=== PATIENT | female | born 1975 | race Caucasian/White ===

== ENCOUNTER 2018-03-03 17:01 | Observation (INO) ==
[~2018-03-03 17:01] MED LIST: HYDROcodone/ACETAMINOPHEN 1 EACH TABLET PO PRN; HYDROmorphone HCL 1 MG/ML DISP.SYRIN IV PRN; HYDROmorphone HCL 2 MG/ML VIAL IV PRN; NALOXONE HCL 0.4 MG/ML VIAL IV PRN; ONDANSETRON HCL/PF 2 MG/ML VIAL IV PRN; PROCHLORPERAZINE EDISYLATE 5 MG/ML VIAL IV PRN; diphenhydrAMINE HCL 50 MG/ML VIAL IV PRN
[2018-03-03] MEDS ORDERED: DIATRIZOATE MEGLUMINE, SODIUM 30 ML BTL PO ONE (17:18)
[2018-03-03] MEDS ORDERED: NORMAL SALINE 1,000 ML IV ONE (17:18)
[2018-03-03] MEDS ORDERED: DIATRIZOATE MEGLUMINE, SODIUM 30 ML BTL ONE (17:21)
--- NOTE | 2018-03-03 17:26 | ERNOTE ---
Abdominal HPI - Narrative Date of Service: 03/03/18 - General Chief Complaint: Abdominal Pain Time Seen by Provider: 03/03/18 17:12 Source: patient Exam Limitations: no limitations - Immun/Allergies/Home Medications Immunizatons: IMMUNIZATION HX Immunizations Up to Date Yes Allergies/Adverse Reactions: Allergies No Known Allergies Allergy (Verified 03/03/18 17:09) Home Medications: HOME MEDICATIONS Citalopram Hydrobromide [Citalopram HBr] 10 mg PO DAILY 03/03/18 [Last Taken Unknown] - History of Present Illness Narrative: patient presents to the ED for evaluation of abdominal pain. This pain began last night. She points to her right lower abdomen. She has never had anything like it before. It initially was coming and going, now constant. Never had it before. Moderate. Worse with palpation. No urineary Sx. Has not seen anyone else for this. No fever, no vomiting or diarrhea. Timing: constant, getting worse Quality: moderate Activities at Onset: none Modifying Factors - (Improves): Present: other - nothing Modifying Factors - (Worsens): Present: other - palpation Associated Symptoms: Absent: headache, diarrhea-gross blood, diarrhea-mucous, vomiting, shortness of breath Prior Abdominal Problems: Present: none Prior Treatment: Absent: recently seen Review of Systems - Review of Systems Constitutional: Absent: fever EYE: Present: see HPI ENT: Absent: sore throat Respiratory: Absent: shortness of breath Cardiology: Absent: chest pain Gastrointestinal/Abdominal: Present: See HPI Genitourinary: Absent: dysuria All Other Systems: All systems neg except as marked Medical History (Last Reviewed 03/03/18 @ 17:21 by Fernando Levine MD) Anxiety Depression Surgical History: Surgical History (Last Reviewed 03/03/18 @ 17:21 by Fernando Levine MD) History of delivery History of tonsillectomy Social History: Preferred Language Wolof Do you have any scientologist or No cultural preference? Smoking Status Never smoker Alcohol Use occasionally Drug Use none Physical Exam - Physical Exam General Appearance: Present: alert, no apparent distress Head Exam: Present: normal inspection, no evidence of injury Eye Exam: Normal inspection: bilateral, PERRL: bilateral Ears, Nose, Throat: Present: normal ENT inspection Neck: Present: normal inspection Respiratory: Present: no respiratory distress, normal breath sounds, no accessory muscle use, lungs clear Cardiovascular/Chest: Present: regular rate, rhythm, normal peripheral pulses Gastrointestinal/Abdominal: Present: normal bowel sounds, nondistended, soft, other - right low abdominal tendenress to palpation Back Exam: Absent: CVA tenderness (R), CVA tenderness (L) Extremity Exam: Present: normal inspection Neurological Exam: Present: alert, no motor/sensory deficits Skin Exam: Present: normal color, warm/dry ED Progress - Results and Orders Patient's Lab Results:: I have reviewed the patient's lab results. - Vital Signs Patient's Vital Signs:: I have reviewed the patient's vital signs. Vital Signs: Vital Signs 03/03/18 17:04 Temperature 36.7 C Pulse Rate 70 Respiratory Rate 16 Blood Pressure 121/72 O2 Sat by Pulse Oximetry 98 - CT/Ultrasound CT/Ultrasound Narrative: I reviewed the official radiology report - Progress/Reassessment Chief Complaint: Abdominal Pain Progress Note-Subjective: 03/03/18 20:04 D/W Patient. D/W Dr Araujo who will come to see the patient. Departure Clinical Impression: Acute appendicitis - Departure Disposition: Still a patient Condition: Stable Referrals: Lizabeth Vieira MD [Primary Care Provider] -
[2018-03-03 17:46] LABS: Hematocrit 38.7 % (37.0-47.0); Hemoglobin 13.1 gm/dL (12.5-16.0); Mean Cell Volume 94.6 fl (78-100); Mean Corpuscular Hgb Conc 33.9 g/dl (32-36); Mean Platelet Volume 9.4 fl (8-12.5); Neutrophil # 12.7 K/mm3 (1.3-6.0); Neutrophil % 76.7 % (42-75.0); Platelet Count 331 K/mm3 (150-450); Red Blood Count 4.09 M/mm3 (4.2-5.4); Red Cell Distribution Width 11.9 % (11.5-14.0); White Blood Count 16.6 K/mm3 (4.0-10.5)
[2018-03-03 18:01] LABS: Urine Appearance Clear (CLEAR); Urine Bacteria None Seen; Urine Bilirubin Negative (NEGATIVE); Urine Blood Negative /ul (NEGATIVE); Urine Color Yellow; Urine Ketone Negative (NEGATIVE); Urine Nitrite Negative (NEGATIVE); Urine Protein Negative (NEGATIVE); Urine RBC None Seen /hpf (0-5); Urine Urobilinogen Normal (NORMAL); Urine WBC 0-5 /hpf (0-5)
[2018-03-03 18:02] LABS: Albumin * 3.9 gm/dl (3.4-5.0); Anion Gap 12.4 mmol/L (6.8-13.8); BUN/Creatinine Ratio 17.6 (9.0-21.6); Bilirubin, Total 0.3 mg/dL (0.0-1.1); CRP 3.1 mg/dL (0.0-0.9); Ca. Corrected For Albumin 8.4 mg/dL (8.4-10.2); Calcium * 8.6 mg/dL (7.9-10.9); Carbon Dioxide 25.4 mmol/L (24-32.6); Potassium 3.8 mmol/L (3.4-4.6); Total Protein 7.2 gm/dL (6.2-8.2)
--- NOTE | 2018-03-03 21:29 | ERNOTE ---
Abdominal HPI - Narrative Date of Service: 03/03/18 - General Chief Complaint: Abdominal Pain Time Seen by Provider: 03/03/18 17:12 Source: patient Exam Limitations: no limitations - Immun/Allergies/Home Medications Immunizatons: IMMUNIZATION HX Immunizations Up to Date Yes Allergies/Adverse Reactions: Allergies No Known Allergies Allergy (Verified 03/03/18 17:09) Home Medications: HOME MEDICATIONS Citalopram Hydrobromide [Citalopram HBr] 10 mg PO DAILY 03/03/18 [Last Taken Unknown] - History of Present Illness Narrative: Laurence is a very pleasant 42-year-old female who developed abdominal pain last night, this has gradually worsened and has moved to her right lower quadrant. She has never had this significant of abdominal pain before. She sometimes has mild abdominal pain, which resolves after 30 minutes. She denies any vomiting. She does feel nauseous, and has not eaten today. Her family is with her in the room today. She is otherwise very healthy. Review of Systems - Review of Systems Constitutional: Present: malaise EYE: Present: no symptoms reported ENT: Present: no symptoms reported Respiratory: Present: no symptoms reported Cardiology: Present: no symptoms reported Gastrointestinal/Abdominal: Present: nausea, abdominal pain, eating less, drinking less Genitourinary: Present: no symptoms reported Musculoskeletal: Present: no symptoms reported Skin: Present: no symptoms reported Neurological: Present: no symptoms reported Endocrine: Present: no symptoms reported Hematologic/Lymphatic: Present: no symptoms reported Psych: Present: anxiety Medical History (Last Reviewed 03/03/18 @ 17:21 by Fernando Levine MD) Anxiety Depression Surgical History: Surgical History (Last Reviewed 03/03/18 @ 17:21 by Fernando Levine MD) History of delivery History of tonsillectomy Social History: Preferred Language Estonian Do you have any sabianist or No cultural preference? Smoking Status Never smoker Alcohol Use occasionally Drug Use none Physical Exam - Physical Exam General Appearance: Present: alert Head Exam: Present: normal inspection Ears, Nose, Throat: Absent: hearing decreased Neck: Present: supple, full range of motion Respiratory: Present: no respiratory distress, normal breath sounds Cardiovascular/Chest: Present: regular rate, rhythm, no murmur Gastrointestinal/Abdominal: Present: normal bowel sounds, soft, McBurney sign, Stallings sign Back Exam: Present: normal inspection Extremity Exam: Present: normal inspection Neurological Exam: Present: alert, oriented, normal mood/affect Skin Exam: Present: normal color ED Progress - Results and Orders Patient's Lab Results:: I have reviewed the patient's lab results. - Vital Signs Patient's Vital Signs:: I have reviewed the patient's vital signs. Vital Signs: Vital Signs 03/03/18 17:04 03/03/18 17:40 03/03/18 18:00 Temperature 36.7 C Pulse Rate 70 75 62 Respiratory Rate 16 16 Blood Pressure 121/72 121/79 115/71 O2 Sat by Pulse Oximetry 98 95 99 03/03/18 18:30 03/03/18 19:00 Temperature 36.4 C Pulse Rate 63 65 Respiratory Rate Blood Pressure 118/75 118/75 O2 Sat by Pulse Oximetry 100 100 - Progress/Reassessment Chief Complaint: Abdominal Pain - Transfer of Care Expected Disposition: Admit Plan - Plan Plan: We will plan to do a laparoscopic appendectomy, possible open. Patient is still having some pain and nausea, we'll continue to control her pain and nausea. Risks and benefits of the procedure were discussed with the patient including bleeding, infection, need for laparotomy, and abscess development. She voices understanding and would like to proceed. Her family is present in the voices understanding and as well. We will emergently called the operating room team in for a laparoscopic possible open appendectomy. I personally reviewed her CT scan images and labs. Departure Clinical Impression: Acute appendicitis - Departure Disposition: Still a patient Condition: Stable Referrals: Lizabeth Vieira MD [Primary Care Provider] - Assessment /Plan - Assessment/Plan Assessment: Acute appendicitis Anxiety and depression
--- NOTE | 2018-03-03 21:41 | OR ---
Operative Report - Dictated Report Narrative: Date of Service: 03/03/2018 Procedure: Laparoscopic appendectomy Pre-procedure diagnosis: Acute appendicitis Post-procedure diagnosis: same, non ruptured Surgeon: Dr. Lenora Araujo D.O. Anesthesia: MAC Indication for procedure: Laurence is a very pleasant 42-year-old female who developed abdominal pain yesterday. He came to the emergency room, and had a CT scan which demonstrated acute appendicitis. Description of procedure: After appropriate informed consent was obtained, patient was taken to the operating room, placed in the supine position, general anesthesia was achieved. The OR nurse placed a Fernandes catheter. She was prepped and draped in the usual sterile fashion. A 5 mm periumbilical incision was made. A hemostat was used to dissect down to the fascia, a towel clip was used to elevate the fascia. A Veress needle was inserted, saline drop test was performed which was adequate. A 5 mm trocar was placed. Camera was inserted, and inspection of the abdomen revealed no evidence of a trocar injury. A 5 mm trocar was placed at the suprapubic region, a 12 mm trocar was placed in the left lower quadrant. The appendix was identified, a window was made in the mesoappendix. The stapler was used to transect the base of the appendix with a blue load. The stapler was then used to transect the mesoappendix with a white load. There is good hemostasis. The appendix was removed in an Endo Catch bag. The 12 mm trocar site was closed using a 0 Vicryl suture, and the PMI device. The abdomen was desufflated, trochars were removed. Local anesthetic was injected, the skin was closed with inverted interrupted 4-0 Vicryl suture. The skin was cleansed, Mastisol and Steri-Strips were applied. Complications: none Specimens to pathology: Appendix Estimated blood loss: minimal Disposition: Patient will be admitted to the floor for observation.
[2018-03-03] MEDS ORDERED: RINGER'S SOLUTION,LACTATED 1,000 ML IV ONE (21:46)
--- NOTE | 2018-03-03 21:50 | ANES ---
Anesthesia Pre Procedure Eval Vitals/Labs: Last Vital Signs Temp 36.4 C 03/03/18 18:30 Pulse 65 03/03/18 19:00 Resp 16 03/03/18 18:00 BP 118/75 03/03/18 19:00 Pulse Ox 100 03/03/18 19:00 HOME MEDICATIONS Citalopram Hydrobromide [Citalopram HBr] 10 mg PO DAILY 03/03/18 [Last Taken Unknown] Allergies/Adverse Reactions: Allergies Allergy/AdvReac Type Severity Reaction Status Date / Time No Known Allergies Allergy Verified 03/03/18 17:09 - Planned Procedure Planned Procedure: LAp Appy Medication List Reviewed:: Yes Allergies Verified: Yes Medical History (Last Reviewed 03/03/18 @ 17:21 by Fernando Levine MD) Anxiety Depression Surgical History (Last Reviewed 03/03/18 @ 17:21 by Fernando Levine MD) History of delivery History of tonsillectomy - Family Anesthesia History Family History:: no untoward family reactions to anesthesia, no familial bleeding tendencies, no family history of clotting disorders, no family history of premature - Airway/Neck/Teeth Within Normal Limits:: Yes Teeth Condition: Intact Denture Type: Perm crown/bridge Neck Exam: full range of motion Mallampatti Score: 2 Thyromental (T-M) distance: > 6 cm Mandibulo Hyoid distance: > 3 cm - Respiratory Respiratory: lungs clear Smoking Status: Never smoker Discussed smoking cessation including day of surgery: No Sleep Apnea currently treated: No Sleep Apnea by current assessment: No Discussed Risks/Treatment of YESENIA: No - Cardiovascular Tolerates Activity: Good Heart Sounds: S1 & S2, Regular - Anesthesia Assessment and Plan ASA Class: PS, II, E Anesthesia Type Plan: General ET
[2018-03-03] MEDS ORDERED: CEFOXITIN SODIUM 1 GM in DEXTROSE 5 % IN WATER 100 ML IV ONE ×2 (22:25)
[2018-03-03] MEDS ORDERED: HYDROmorphone HCL 1 MG/ML DISP.SYRIN IV PRN (23:08)
[2018-03-03] MEDS ORDERED: HYDROcodone/ACETAMINOPHEN 1 EACH TABLET PO PRN (23:08)
[2018-03-03] MEDS ORDERED: ONDANSETRON HCL/PF 2 MG/ML VIAL IV PRN (23:08)
[2018-03-03] MEDS ORDERED: POTASSIUM CHLORIDE 20 MEQ in DEXTROSE 5%-0.5 NORMAL SALINE 990 ML IV SCH (23:15)
--- NOTE | 2018-03-03 23:22 | ANES ---
Post Anesthesia Discharge - Transfer of Care Transfer of Care handoff given to nurse: Yes - Discharge from PACU Discharge from PACU when meets criteria: Yes - Discharge to ASU Discharge to ASU-no complications/pt stable: Yes
[2018-03-03] MEDS ORDERED: NALOXONE HCL 0.4 MG/ML VIAL IV PRN (23:23)
[2018-03-03] MEDS ORDERED: PROCHLORPERAZINE EDISYLATE 5 MG/ML VIAL IV PRN (23:23)
[2018-03-03] MEDS ORDERED: HYDROmorphone HCL 2 MG/ML VIAL IV PRN (23:23)
[2018-03-03] MEDS ORDERED: diphenhydrAMINE HCL 50 MG/ML VIAL IV PRN (23:23)
--- NOTE | 2018-03-03 23:23 | ANES ---
Post Anesthesia Assessment - Vital Signs Vitals: Last Vital Signs Temp 37.0 C 03/03/18 23:20 Pulse 80 03/03/18 23:20 Resp 21 H 03/03/18 23:20 BP 126/54 03/03/18 23:20 Pulse Ox 94 03/03/18 23:20 Airway Patency: Normal - Mental Status Level Of Consciousness: Awake - Pain Level Pain Score: 0 - N/V Assessment Nausea/Vomiting Presence: None Dehydration:: No
[2018-03-04] MEDS: POTASSIUM CHLORIDE 20 MEQ in DEXTROSE 5%-0.5 NORMAL SALINE 990 ML IV SCH ×2 (02:10→12:37)
[2018-03-04 06:28] VITALS: BP 105/65
[2018-03-04] MEDS ORDERED: RINGER'S SOLUTION,LACTATED 1,000 ML IV ONE (07:45)
--- NOTE | 2018-03-04 11:11 | PN ---
Subjective - Date and Time Seen Date: 03/04/18 Time: 10:00 Subjective Narrative: Pt is doing well. She has not had very much to eat, just rachid crackers. She feels like pain is controlled. She thinks she will be ready to go home after she eats more. Objective - Review of Systems Generalized/Overall Review: Reports: No Symptoms Reported EENTM: Reports: No Symptoms Reported Respiratory: Reports: No Symptoms Reported Cardiac: Reports: No Symptoms Reported Abdominal: Reports: Abdominal Pain - normal post op pain Genitourinary Symptoms: Reports: No Symptoms Reported Musculoskeletal Complaints: Reports: No Symptoms Reported Neurological: Reports: No Symptoms Reported Skin: Reports: No Symptoms Reported Endocrine: Reports: No Symptoms Reported - Vitals Vitals: Last Vital Signs Temp 37.9 C 03/04/18 06:23 Pulse 111 H 03/04/18 06:23 Resp 16 03/04/18 06:23 BP 105/65 03/04/18 06:23 Pulse Ox 94 03/04/18 06:23 - Abnormal Lab Findings Abnormal Lab Findings: Abnormal Lab Results 03/03/18 03/03/18 Range/Units 17:28 17:28 WBC 16.6 H (4.0-10.5) K/mm3 RBC 4.09 L (4.2-5.4) M/mm3 MCH 32.0 H (27-31) pg Immature Gran # (Auto) 0.06 H (0.000-0.0310) K/mm3 Neutrophils % 76.7 H (42-75.0) % Lymphocytes % 14.6 L (20-51) % Neutrophils # 12.7 H (1.3-6.0) K/mm3 Monocytes # 1.1 H (0.0-1.0) k/mm3 C-Reactive Prot, Quant 3.1 H (0.0-0.9) mg/dL - Exam Constitutional: Present: Alert, Oriented x3, Cooperative ENT Exam: Present: normal ENT inspection Neck: Present: non-tender Respiratory: Present: normal breath sounds Cardiovascular/Chest: Present: normal peripheral pulses Abdomen: Present: Normal bowel sounds, soft, other - normal post op tenderness incisions C/D/I Extremity: Present: normal range of motion Skin Exam: Present: normal color Appearance: Present: appropriate appearance Cauti Physician Documentation - Urinary Catheter Management Urethral (Fernandes) Date of Insertion: 03/03/18 Time of Insertion: 22:05 Assessment/Plan Plan Narrative: s/p lap appy Plan: dc home later today if tolerates diet
--- NOTE | 2018-03-04 11:19 | DS ---
Description of Stay: Laurence is a very pleasant 42-year-old female who came in last night for laparoscopic appendectomy. She is doing better today. The plan is for her to advance her diet, and discharge home later today. She denies any nausea or vomiting. She has decreased pain in the right lower quadrant, but is having pain at the surgical sites. Procedures Performed: see notes below List Procedures: Laparoscopic appendectomy Results and Findings: Lab Pending Results 03/03/18 17:28: WBC 16.6 H, RBC 4.09 L, Hgb 13.1, Hct 38.7, MCV 94.6, MCH 32.0 H , MCHC 33.9, RDW 11.9, Plt Count 331, MPV 9.4, Immature Gran % (Auto) 0.40, Immature Gran # (Auto) 0.06 H, Neutrophils % 76.7 H, Lymphocytes % 14.6 L, Monocytes % 6.4, Eosinophils % 1.7, Basophils % 0.2, Nucleated RBC % 0.0, Neutrophils # 12.7 H, Lymphocytes # 2.41, Monocytes # 1.1 H, Eosinophils # 0.3, Absolute Basophils 0.0 03/03/18 17:28: Sodium 138, Plasma Sodium 138, Potassium 3.8, Chloride 104, Carbon Dioxide 25.4, Anion Gap 12.4, BUN 16, Creatinine 0.91, Est GFR (Non-Af Amer) 72, BUN/Creatinine Ratio 17.6, Random Glucose 90, Calcium 8.6, Calcium Adj for Albumin 8.4, Total Bilirubin 0.3, AST 21, ALT 27, Alkaline Phosphatase 51, C-Reactive Prot, Quant 3.1 H, Total Protein 7.2, Albumin 3.9, Lipase 147 03/03/18 17:28: Serum HCG, Qual Negative 03/03/18 17:45: Urine Color Yellow, Urine Appearance Clear, Urine pH 6.0, Ur Specific [place] 1.020, Urine Protein Negative, Urine Glucose (UA) Negative, Urine Ketones Negative, Urine Blood Negative, Urine Nitrate Negative, Urine Bilirubin Negative, Urine Urobilinogen Normal, Ur Leukocyte Esterase Negative, Urine RBC None seen, Urine WBC 0-5, Ur Epithelial Cells 0-5, Urine Bacteria None seen, Urine Culture Comments No culture indicated Discharge Location: Home Disposition: Home self-care Condition: Stable Discharge Activity: Activity as tolerated Discharge Diet: General/regular food Referrals: Lizabeth Vieira MD [Primary Care Provider] - Problem Oriented Discharge Instructions to Patient/Family: Laparoscopic Appendectomy, Adult, Appendicitis, [id number] Additional Patient Instructions (free text): Follow up with Dr. Luciano Araujo in 2 weeks. Fmch will call you on Monday with follow up appointment. Prescriptions (Any new or edited meds): HYDROcodone/ACETAMINOPHEN [Hydrocodon-Acetaminophen 5-325] 2 each PO TID #30 tablet Complete Home Medications List: Complete Home Medication List: Citalopram Hydrobromide [Citalopram HBr] 10 mg PO DAILY 03/03/18 Ascorbic Acid [Vitamin C] 1,000 mg PO DAILY 03/04/18 B Complex 11/Folic/C/Biot/Zinc [Dialyvite with Zinc Tablet] PO DAILY 03/04/18 HYDROcodone/ACETAMINOPHEN [Hydrocodon-Acetaminophen 5-325] 2 each PO TID #30 tablet 03/04/18 Multivitamin [Multivitamins] 1 each PO DAILY 03/04/18 [place]-3/Dha/Epa/Fish Oil [Fish Oil 1,000 mg Softgel] 1 each PO DAILY 03/04/18
[2018-03-04] MEDS ORDERED: HYDROcodone/ACETAMINOPHEN 1 EACH TABLET PO PRN (11:40)
== END 2018-03-04 15:00 | disposition home or self-care (01) ==
LOC: ER 17:01 → MS 21:48 → AMB 21:48
PROVIDERS: ADMIT Surgery; ATTEND Surgery
DX: K35.3 Acute appendicitis with localized peritonitis
CPT/HCPCS: 36415; 74177; 80053; 81001; 83690; 84703; 85025; 86140; 88304; 96360; 96361; 96372; 99284; G0378